=== PATIENT | female | born 1950 | race Caucasian/White ===

== ENCOUNTER 2021-04-09 09:13 | Outpatient (CLI) | payer MEDICARE, SELFPAY ==
--- NOTE | 2021-04-09 09:20 | MM_ITS ---
WS: [id number] BILATERAL SCREENING DIGITAL MAMMOGRAM WITH CAD HISTORY: SCREENING COMPARISON: 08/14/2019 and 11/24/2017 Bilateral CC and MLO views submitted. Computer aided detection analyzed. Breast composition: There are scattered areas of fibroglandular density. No suspicious masses, microc alcifications or architectural distortion. Benign calcifications in each breast. MM/[id number] IMPRESSION: BI-RADS: 2-Benign FOLLOW UP: 1 Year Follow-up
== END 2021-04-09 09:14 | disposition home or self-care (01) ==
PROVIDERS: PCP Nurse Practitioner Family; Visit Provider Nurse Practitioner Family
DX: Z12.31 Encounter for screening mammogram for malignant neoplasm of breast (principal)
CPT/HCPCS: 77067

== ENCOUNTER → 2021-10-20 08:15 | Outpatient (BNVA) | payer MEDICARE, SELFPAY | PROVIDERS: PCP Nurse Practitioner Family; Referring Provider Electrodiagnostic Medicine; Visit Provider Internal Medicine | DX: E20.9 Hypoparathyroidism, unspecified (principal); H91.90 Unspecified hearing loss, unspecified ear | CPT/HCPCS: 80053; 82310; 83970; 99204 ==

== ENCOUNTER 2021-10-21 09:54 | Outpatient (CLI) | payer MEDICARE, SELFPAY ==
[2021-10-21 10:52] LABS: Urine Creatinine 27 mg/dL (28-217)
[2021-10-21 10:54] LABS: Total Volume Urine 2800 ml
[2021-10-21 11:07] LABS: Total Volume Urine 2800 ml
[2021-10-21 11:10] LABS: Calcium 24 Hour Urine 538 mg/24hr (100-300); Urine Calcium Result 19.2 mg/dL
== END 2021-10-21 09:55 | disposition home or self-care (01) ==
LOC: LAB 09:57
PROVIDERS: PCP Nurse Practitioner Family; Visit Provider Internal Medicine
DX: E20.9 Hypoparathyroidism, unspecified (principal); E83.51 Hypocalcemia
CPT/HCPCS: 82340; 82570

== ENCOUNTER 2021-11-08 09:26 | Outpatient (CLI) | payer MEDICARE, SELFPAY ==
[2021-11-08 10:24] LABS: Calcium 8.6 mg/dL (8.5-10.5)
[2021-11-08 10:30] LABS: Parathyroid Hormone 2.4 pg/mL (15-65)
== END 2021-11-08 09:27 | disposition home or self-care (01) ==
LOC: LAB 09:29
PROVIDERS: PCP Nurse Practitioner Family; Visit Provider Internal Medicine
DX: E20.9 Hypoparathyroidism, unspecified (principal)
CPT/HCPCS: 36415; 82310; 83970

== ENCOUNTER 2022-01-14 10:25 | Outpatient (CLI) | payer MEDICARE, SELFPAY ==
[2022-01-14 11:22] LABS: Calcium 8.4 mg/dL (8.5-10.5)
[2022-01-14 11:29] LABS: Parathyroid Hormone 2.6 pg/mL (15-65)
== END 2022-01-14 10:26 | disposition home or self-care (01) ==
PROVIDERS: PCP Nurse Practitioner Family; Visit Provider Internal Medicine
DX: E20.9 Hypoparathyroidism, unspecified (principal)
CPT/HCPCS: 36415; 82310; 83970

== ENCOUNTER → 2022-01-21 08:52 | Outpatient (BNVA) | payer MEDICARE, SELFPAY | PROVIDERS: PCP Nurse Practitioner Family; Visit Provider Internal Medicine | DX: E20.9 Hypoparathyroidism, unspecified (principal) | CPT/HCPCS: 99214 ==

== ENCOUNTER 2022-04-13 14:09 | Outpatient (CLI) | payer MEDICARE, SELFPAY ==
--- NOTE | 2022-04-13 14:18 | MM_ITS ---
WS: [id number] BILATERAL 3D TOMOSYNTHESIS DIGITAL SCREENING MAMMOGRAPHY WITH CAD CLINICAL INFORMATION: SCREENING HISTORY: Screening mammogram. No current complaints. COMPARISON: April 09, 2021 TECHNIQUE: Bilateral CC and MLO views. FINDINGS: Scattered fibroglandular densities bilaterally. No suspicious focal mass, asymmetry, calcifications, or architectural distortion. No evidence of malignancy. Biopsy marker LEFT breast. MM/[place] [id number] IMPRESSION: BI-RADS: 2-Benign FOLLOW UP: 1 Year Follow-up Recommend return to annual screening mammography.
== END 2022-04-13 14:10 | disposition home or self-care (01) ==
PROVIDERS: PCP Nurse Practitioner Family; Visit Provider Electrodiagnostic Medicine
DX: Z12.31 Encounter for screening mammogram for malignant neoplasm of breast (principal)
CPT/HCPCS: 77063; 77067

== ENCOUNTER 2022-07-20 10:59 | Outpatient (CLI) | payer MEDICARE, SELFPAY ==
[2022-07-20 11:53] LABS: Calcium 6.7 mg/dL (8.5-10.5)
[2022-07-20 11:55] LABS: 25 Hydroxy Vitamin D 81 ng/mL (30-100)
[2022-07-20 12:00] LABS: Parathyroid Hormone 2.2 pg/mL (15-65)
== END 2022-07-20 11:00 | disposition home or self-care (01) ==
LOC: LAB 11:02
PROVIDERS: PCP Nurse Practitioner Family; Visit Provider Internal Medicine
DX: E83.51 Hypocalcemia (principal); E20.9 Hypoparathyroidism, unspecified
CPT/HCPCS: 36415; 82306; 82310; 83970

== ENCOUNTER 2022-07-26 09:51 | Outpatient (CLI) | payer MEDICARE, SELFPAY ==
[2022-07-26 10:57] LABS: Alanine Aminotransferase 11 U/L (0-33); Alkaline Phosphatase 97 U/L (35-105); Anion Gap 13.2 (5-19); Aspartate Amino Transferase 20 U/L (0-32); Blood Urea Nitrogen 8 mg/dL (8-23); Calcium 6.7 mg/dL (8.5-10.5); Carbon Dioxide 30 mmol/L (22-29); Chloride 102 mmol/L (98-107); Globulin 2.8 g/dL (1.3-4.6); Glucose 121 mg/dL (65-115); Osmolality Calculated 290 mOsm/kg (285-295); Potassium 5.2 mmol/L (3.5-5.1); Sodium 140 mmol/L (136-145); Total Bilirubin 0.3 mg/dL (0.15-1.2); Total Protein 6.8 g/dL (6.6-8.7)
== END 2022-07-26 09:52 | disposition home or self-care (01) ==
PROVIDERS: PCP Electrodiagnostic Medicine; Visit Provider Internal Medicine
DX: E83.51 Hypocalcemia (principal)
CPT/HCPCS: 36415; 80053

== ENCOUNTER 2022-07-26 13:41 | Emergency (ER) | payer MEDICARE, SELFPAY ==
[2022-07-26 13:49] VITALS: BP 165/96; PULSE 75; RESP 16; TEMP 36.6; O2SAT 95
--- NOTE | 2022-07-26 14:17 | W.ED.RECABL ---
HPI - Recheck/Abnormal Lab/Rx General: Chief Complaint: Recheck/Abnormal Lab/Rx Stated Complaint: Sent by for abnormal labs Time Seen by Provider: 07/26/22 14:11 Source: patient Mode of arrival: ambulatory History of Present Illness: 70-year-old female known history of hypoparathyroidism sent for hypocalcemia. (please note nurses notes this hypercalcemia). Prior to arrival patient calcium 6.7. She has not had any muscle tetany aches or pains. She generally feels fine states she is at low calcium problems for quite some time. She denies any chest pain or discomfort no nausea vomiting diarrhea. She does feel somewhat tired no dizziness or weakness. Context: called for abnormal lab result Associated symptoms: none Review of Systems Const: Reports: fatigue; Denies: fever(s), chills, body aches, change in appetite or malaise ENMT: Denies: throat pain, ear or mastoid pain, nasal discharge or nasal congestion Card: Denies: chest pain, edema, dyspnea on exertion or orthopnea Resp: Denies: dyspnea, productive cough or non-productive cough GI: Denies: abdominal pain, nausea, vomiting, hematemesis, coffee ground emesis, diarrhea, constipation, bloating, hematochezia or melena : Denies: flank pain, difficulty voiding, dysuria, urinary frequency or urinary urgency Skin/Breast: Denies: rash or pruritus PFSH ED PFSH: Medical History Cataract Essential (primary) hypertension Hernia High cholesterol Hypocalcemia Left wrist fracture Surgical History History of cholecystectomy Family History Father Alcoholic Emphysema (subcutaneous) (surgical) resulting from a procedure Mother Cancer Social History Smoking and tobacco status: never smoked Second hand smoke exposure: No Smoking risk assessment/counseling performed?: No Alcohol intake: never Desire information about alcohol rehabilitation?: No Counseling given: No Desire information about substance/drug rehabilitation?: No Counseling given: No Adopted: No Caregiver/support person: No Lives independently: Yes Household members: none Housing: Apartment Marital status: / Number of children: 3 Highest education level completed: 9th Grade service: No Current occupational status: retired History of recent travel: No Physical Exam Const: COMMON NORMALS: no acute distress GENERAL APPEARANCE: cooperative and comfortable ORIENTATION/CONSCIOUSNESS: Yes awake, Yes oriented to person, Yes oriented to place and Yes oriented to time HENMT: COMMON NORMALS: normocephalic, atraumatic and hearing grossly normal bilaterally HEAD & SCALP: normocephalic and atraumatic Resp: COMMON NORMALS: normal respiratory effort, No retractions, No use of accessory muscles and clear to auscultation bilaterally AUSCULTATION: clear to auscultation bilaterally Cardio: COMMON NORMALS: regular rate, regular rhythm and No murmurs present (Cardio) RATE: regular rate RHYTHM: regular rhythm GI: COMMON NORMALS: Soft to palpation and No hepatosplenomegaly present AUSCULTATION: Yes normoactive bowel sounds PALPATION: Yes Soft to palpation, No Tenderness to palpation present (GI), No Guarding due to palpation present (GI) and Yes No hepatosplenomegaly present Extremity: COMMON NORMALS: normal to inspection, capillary refill normal, no clubbing, cyanosis or edema, no calf tenderness and no pedal edema Neuro: SENSORIUM/ORIENTATION: Yes oriented to person, Yes oriented to place and Yes oriented to time Skin: COMMON NORMALS: no rashes or lesions noted GENERAL SKIN EXAM: no rashes or lesions noted Course Vital Signs: Vital signs: Vital Signs Temperature 97.8 F 07/26/22 13:49 Pulse Rate 75 07/26/22 13:49 Respiratory Rate 16 07/26/22 13:49 Blood Pressure 161/85 07/26/22 15:30 Pulse Oximetry 94 07/26/22 16:00 MDM - Recheck/Abnormal Lab/Rx Medical Decision Making Calcium supplementation given repeat labs calcium up to 9.9 we will discharge patient home follow-up with Dr. García as scheduled for repeat calcium checks and management of hypothyroidism. Medical Records I reviewed the patient's medical records. Lab Data I reviewed the patient's lab results. 07/26/22 14:16 07/26/22 15:25 Laboratory Results WBC 4.8 10^3/uL (4.0-10.0) 07/26/22 14:16 RBC 3.54 10^6/uL (4.1-5.3) L 07/26/22 14:16 Hgb 10.1 g/dL (11.5-15.3) L 07/26/22 14:16 Hct 31.9 % (37.0-47.0) L 07/26/22 14:16 MCV 90.1 fl (81-99) 07/26/22 14:16 MCH 28.5 pg (28.0-34.0) 07/26/22 14:16 MCHC 31.7 g/dL (30.0-36.0) 07/26/22 14:16 RDW 16.1 % (12.1-15.1) H 07/26/22 14:16 Plt Count 301 10^3/cmm (130-400) 07/26/22 14:16 MPV 10.4 fL (7.4-10.4) 07/26/22 14:16 Neut % (Auto) 50.2 % 07/26/22 14:16 Lymph % (Auto) 35.2 % 07/26/22 14:16 [place] % (Auto) 8.8 % 07/26/22 14:16 Eos % (Auto) 4.6 % 07/26/22 14:16 Baso % (Auto) 1.0 % 07/26/22 14:16 Neut # (Auto) 2.39 10^3/uL (1.8-7.7) 07/26/22 14:16 Lymph # (Auto) 1.7 10^3/uL (0.8-4.8) 07/26/22 14:16 [place] # (Auto) 0.4 10^3/uL (0.2-0.9) 07/26/22 14:16 Eos # (Auto) 0.2 10^3/uL (0.0-0.8) 07/26/22 14:16 Baso # (Auto) 0.1 10^3/uL (0.0-0.1) 07/26/22 14:16 Nucleated RBC % (auto) 0 % 07/26/22 14:16 Nucleated RBCs # 0.0 /100WBC 07/26/22 14:16 Sodium 135 mmol/L (136-145) L 07/26/22 15:25 Potassium 4.5 mmol/L (3.5-5.1) 07/26/22 15:25 Chloride 97 mmol/L (98-107) L 07/26/22 15:25 Carbon Dioxide 25 mmol/L (22-29) 07/26/22 15:25 Anion Gap 17.5 (5-19) 07/26/22 15:25 BUN 9 mg/dL (8-23) 07/26/22 15:25 Creatinine 0.7 mg/dL (0.5-0.9) 07/26/22 15:25 GFR Calculation Not Reportable 07/26/22 15:25 Glucose 111 mg/dL (65-115) 07/26/22 15:25 Calculated Osmolality 279 mOsm/kg (285-295) L 07/26/22 15:25 Calcium 9.9 mg/dL (8.5-10.5) 07/26/22 15:25 PTH Intact 3.0 pg/mL (15-65) L 07/26/22 14:16 Calcium (PTH Intact) 10.4 mg/dL (8.5-10.5) 07/26/22 14:16 Discharge Plan Discharge Patient Disposition: Home Clinical Impression: Hypocalcemia, Hypoparathyroidism Condition: Stable Prescriptions: No Action calcitriol 1 mcg/mL solution 1 mcg PO DAILY Calcium Chew 500-100-40 mg-unit-mcg Tablet,Chewable 1 tab PO BID calcium carbonate 500 mg/5 mL (1,250 mg/5 mL) suspension 500 mg PO QAM Discharge Orders: Discharge ED (Routine); Ordered 07/26/22 Ordered By: Armond Villegas Referrals: Enmanuel Patrick DO [Primary Care Provider] - Discharge Diet: Usual diet Discharge Activity: Resume usual activity Patient Instructions: Opioid Safety, Pain Management Activity Restrictions/Additional Instructions: You were seen today for hypocalcemia. Your calcium improved after you were given supplementation. You should follow-up with Dr. García to address the hypoparathyroidism which caused your low calcium. Coding Level of Care Code ED Inspector Subassembly for Zelda Ch
[2022-07-26 14:21] VITALS: BP 142/102; O2SAT 98
[2022-07-26 14:23] LABS: Basophils # 0.1 10^3/uL (0.0-0.1); Eosinophils # 0.2 10^3/uL (0.0-0.8); Eosinophils % 4.6 %; Hematocrit 31.9 % (37.0-47.0); Hemoglobin 10.1 g/dL (11.5-15.3); Lymphocytes # 1.7 10^3/uL (0.8-4.8); Lymphocytes % 35.2 %; Mean Corpuscular HGB Conc 31.7 g/dL (30.0-36.0); Mean Corpuscular Hemoglobin 28.5 pg (28.0-34.0); Mean Corpuscular Volume 90.1 fl (81-99); Mean Platelet Volume 10.4 fL (7.4-10.4); Monocytes # 0.4 10^3/uL (0.2-0.9); Monocytes % 8.8 %; Neutrophils # 2.39 10^3/uL (1.8-7.7); Neutrophils % 50.2 %; Nucleated Red Blood Cells % 0 %; Platelet Count 301 10^3/cmm (130-400); Red Blood Count 3.54 10^6/uL (4.1-5.3); Red Cell Distribution Width 16.1 % (12.1-15.1); White Blood Count 4.8 10^3/uL (4.0-10.0)
[2022-07-26 14:30] VITALS: BP 142/102; O2SAT 97
[2022-07-26] MEDS: calcium chloride 10% Syr 10 mL 2 GM IVP (14:44)
[2022-07-26 14:46] LABS: Blood Urea Nitrogen 9 mg/dL (8-23); Calcium 6.1 mg/dL (8.5-10.5); Carbon Dioxide 25 mmol/L (22-29); Chloride 97 mmol/L (98-107); Glucose 106 mg/dL (65-115); Osmolality Calculated 279 mOsm/kg (285-295); Sodium 135 mmol/L (136-145)
[2022-07-26 14:48] LABS: Anion Gap 16.9 (5-19); Potassium 3.9 mmol/L (3.5-5.1)
[2022-07-26 15:00] VITALS: BP 149/87; O2SAT 94
[2022-07-26 15:30] VITALS: BP 161/85; O2SAT 92
--- NOTE | 2022-07-26 15:30 | PC.PHAR ---
pt states she takes care of her own medications-pt states she never started the lipitor 20mg daily filled on 03/15/22 90d/s pt states she cant swallow pills-rx filled 07/08/22 calcitriol 1mcg/ml [facility] states this medication is unavailable-pt states not had in a month-notes are made in the pharmacy comments
[2022-07-26 15:56] LABS: Calcium 10.4 mg/dL (8.5-10.5)
[2022-07-26 16:00] VITALS: O2SAT 94
[2022-07-26 16:48] LABS: Anion Gap 17.5 (5-19); Blood Urea Nitrogen 9 mg/dL (8-23); Calcium 9.9 mg/dL (8.5-10.5); Carbon Dioxide 25 mmol/L (22-29); Chloride 97 mmol/L (98-107); Glucose 111 mg/dL (65-115); Osmolality Calculated 279 mOsm/kg (285-295); Potassium 4.5 mmol/L (3.5-5.1); Sodium 135 mmol/L (136-145)
== END 2022-07-26 17:09 | disposition home or self-care (01) ==
PROVIDERS: Emergency Medicine; Emergency Provider Family Medicine; PCP Electrodiagnostic Medicine
DX: E83.51 Hypocalcemia (principal); E20.9 Hypoparathyroidism, unspecified; I10 Essential (primary) hypertension
CPT/HCPCS: 36415; 80048; 80053; 82310; 83970; 85025; 96374; 99284; J3490

== ENCOUNTER 2022-08-10 10:04 | Outpatient (CLI) | payer MEDICARE, SELFPAY ==
[2022-08-10 10:28] LABS: Ionized Calcium 0.8 mmol/L (1.1-1.4)
[2022-08-10 11:14] LABS: Alanine Aminotransferase 9 U/L (0-33); Albumin Level 3.9 g/dL (3.5-5.2); Alkaline Phosphatase 105 U/L (35-105); Anion Gap 14.2 (5-19); Aspartate Amino Transferase 24 U/L (0-32); Blood Urea Nitrogen 8 mg/dL (8-23); Calcium 6.4 mg/dL (8.5-10.5); Carbon Dioxide 29 mmol/L (22-29); Chloride 102 mmol/L (98-107); Globulin 2.8 g/dL (1.3-4.6); Glucose 107 mg/dL (65-115); Osmolality Calculated 291 mOsm/kg (285-295); Potassium 4.2 mmol/L (3.5-5.1); Sodium 141 mmol/L (136-145); Total Bilirubin 0.2 mg/dL (0.15-1.2); Total Protein 6.7 g/dL (6.6-8.7)
== END 2022-08-10 10:05 | disposition home or self-care (01) ==
LOC: RAD 10:06
PROVIDERS: PCP Electrodiagnostic Medicine; Visit Provider Internal Medicine
DX: E20.9 Hypoparathyroidism, unspecified (principal); E55.9 Vitamin D deficiency, unspecified; E83.51 Hypocalcemia
CPT/HCPCS: 80053; 82330

== ENCOUNTER → 2022-08-11 10:57 | Outpatient (BNVA) | payer MEDICARE, SELFPAY | PROVIDERS: PCP Electrodiagnostic Medicine; Visit Provider Internal Medicine | DX: E83.51 Hypocalcemia (principal) | CPT/HCPCS: 99214 ==

== ENCOUNTER 2022-08-19 10:00 | Outpatient (CLI) | payer MEDICARE, SELFPAY ==
[2022-08-19 11:04] LABS: Anion Gap 18.5 (5-19); Blood Urea Nitrogen 9 mg/dL (8-23); Calcium 6.6 mg/dL (8.5-10.5); Carbon Dioxide 25 mmol/L (22-29); Chloride 100 mmol/L (98-107); Glucose 106 mg/dL (65-115); Osmolality Calculated 287 mOsm/kg (285-295); Potassium 4.5 mmol/L (3.5-5.1); Sodium 139 mmol/L (136-145)
== END 2022-08-19 10:01 | disposition home or self-care (01) ==
PROVIDERS: PCP Electrodiagnostic Medicine; Visit Provider Internal Medicine
DX: E55.9 Vitamin D deficiency, unspecified (principal)
CPT/HCPCS: 36415; 80048

== ENCOUNTER 2022-08-26 10:00 | Outpatient (CLI) | payer MEDICARE, SELFPAY ==
[2022-08-26 11:10] LABS: Anion Gap 16.3 (5-19); Blood Urea Nitrogen 13 mg/dL (8-23); Calcium 8.3 mg/dL (8.5-10.5); Carbon Dioxide 25 mmol/L (22-29); Chloride 100 mmol/L (98-107); Glucose 106 mg/dL (65-115); Osmolality Calculated 285 mOsm/kg (285-295); Potassium 4.3 mmol/L (3.5-5.1); Sodium 137 mmol/L (136-145)
== END 2022-08-26 10:01 | disposition home or self-care (01) ==
PROVIDERS: PCP Electrodiagnostic Medicine; Visit Provider Internal Medicine
DX: E83.51 Hypocalcemia (principal)
CPT/HCPCS: 80048

== ENCOUNTER 2022-10-18 08:47 | Outpatient (CLI) | payer MEDICARE, SELFPAY ==
[2022-10-18 10:44] LABS: Alanine Aminotransferase 15 U/L (0-33); Albumin Level 4.1 g/dL (3.5-5.2); Alkaline Phosphatase 82 U/L (35-105); Aspartate Amino Transferase 23 U/L (0-32); Blood Urea Nitrogen 11 mg/dL (8-23); Calcium 7.9 mg/dL (8.5-10.5); Carbon Dioxide 24 mmol/L (22-29); Chloride 99 mmol/L (98-107); Globulin 3.2 g/dL (1.3-4.6); Glucose 102 mg/dL (65-115); Osmolality Calculated 280 mOsm/kg (285-295); Sodium 135 mmol/L (136-145); Total Bilirubin 0.3 mg/dL (0.15-1.2); Total Protein 7.3 g/dL (6.6-8.7)
[2022-10-18 10:46] LABS: Anion Gap 16.3 (5-19); Potassium 4.3 mmol/L (3.5-5.1)
== END 2022-10-18 08:48 | disposition home or self-care (01) ==
LOC: LAB 08:57
PROVIDERS: PCP Electrodiagnostic Medicine; Visit Provider Internal Medicine
DX: E55.9 Vitamin D deficiency, unspecified (principal); E83.51 Hypocalcemia; E20.9 Hypoparathyroidism, unspecified
CPT/HCPCS: 36415; 80053; 99214

== ENCOUNTER 2022-11-02 07:44 | Outpatient (CLI) | payer MEDICARE, SELFPAY ==
[2022-11-02 08:42] LABS: Alanine Aminotransferase 12 U/L (0-33); Alkaline Phosphatase 78 U/L (35-105); Anion Gap 15.2 (5-19); Aspartate Amino Transferase 20 U/L (0-32); Blood Urea Nitrogen 13 mg/dL (8-23); Calcium 9.1 mg/dL (8.5-10.5); Carbon Dioxide 28 mmol/L (22-29); Chloride 100 mmol/L (98-107); Globulin 2.7 g/dL (1.3-4.6); Glucose 105 mg/dL (65-115); Osmolality Calculated 288 mOsm/kg (285-295); Potassium 4.2 mmol/L (3.5-5.1); Sodium 139 mmol/L (136-145); Total Bilirubin 0.5 mg/dL (0.15-1.2); Total Protein 6.7 g/dL (6.6-8.7)
== END 2022-11-02 07:45 | disposition home or self-care (01) ==
LOC: LAB 07:49
PROVIDERS: PCP Electrodiagnostic Medicine; Visit Provider Internal Medicine
DX: E20.9 Hypoparathyroidism, unspecified (principal); E55.9 Vitamin D deficiency, unspecified; E83.51 Hypocalcemia
CPT/HCPCS: 80053

== ENCOUNTER 2022-11-17 07:15 | Outpatient (CLI) | payer MEDICARE, SELFPAY ==
[2022-11-17 08:05] LABS: Alanine Aminotransferase 11 U/L (0-33); Alkaline Phosphatase 74 U/L (35-105); Anion Gap 14.2 (5-19); Aspartate Amino Transferase 21 U/L (0-32); Blood Urea Nitrogen 7 mg/dL (8-23); Calcium 8.6 mg/dL (8.5-10.5); Carbon Dioxide 27 mmol/L (22-29); Chloride 100 mmol/L (98-107); Globulin 2.7 g/dL (1.3-4.6); Glucose 107 mg/dL (65-115); Osmolality Calculated 282 mOsm/kg (285-295); Potassium 4.2 mmol/L (3.5-5.1); Sodium 137 mmol/L (136-145); Total Bilirubin 0.3 mg/dL (0.15-1.2); Total Protein 6.7 g/dL (6.6-8.7)
== END 2022-11-17 07:16 | disposition home or self-care (01) ==
PROVIDERS: PCP Electrodiagnostic Medicine; Visit Provider Internal Medicine
DX: E20.9 Hypoparathyroidism, unspecified (principal); E55.9 Vitamin D deficiency, unspecified; E83.51 Hypocalcemia
CPT/HCPCS: 36415; 80053

== ENCOUNTER 2022-12-13 07:38 | Outpatient (CLI) | payer MEDICARE, SELFPAY ==
[2022-12-13 08:54] LABS: Alanine Aminotransferase 10 U/L (0-33); Albumin Level 3.9 g/dL (3.5-5.2); Alkaline Phosphatase 72 U/L (35-105); Anion Gap 14.7 (5-19); Aspartate Amino Transferase 18 U/L (0-32); Blood Urea Nitrogen 8 mg/dL (8-23); Calcium 8.2 mg/dL (8.5-10.5); Carbon Dioxide 28 mmol/L (22-29); Chloride 101 mmol/L (98-107); Globulin 2.4 g/dL (1.3-4.6); Glucose 87 mg/dL (65-115); Osmolality Calculated 286 mOsm/kg (285-295); Potassium 4.7 mmol/L (3.5-5.1); Sodium 139 mmol/L (136-145); Total Bilirubin 0.3 mg/dL (0.15-1.2); Total Protein 6.3 g/dL (6.6-8.7)
== END 2022-12-13 07:39 | disposition home or self-care (01) ==
LOC: LAB 07:45
PROVIDERS: PCP Electrodiagnostic Medicine; Visit Provider Internal Medicine
DX: E20.9 Hypoparathyroidism, unspecified (principal); E55.9 Vitamin D deficiency, unspecified
CPT/HCPCS: 36415; 80053

== ENCOUNTER → 2022-12-20 13:11 | Outpatient (BNVA) | payer MEDICARE, SELFPAY | PROVIDERS: PCP Electrodiagnostic Medicine; Visit Provider Internal Medicine | DX: E20.9 Hypoparathyroidism, unspecified (principal); E55.9 Vitamin D deficiency, unspecified | CPT/HCPCS: 99214 ==

== ENCOUNTER 2023-02-20 07:02 | Outpatient (CLI) | payer MEDICARE, MEDICAID, SELFPAY ==
[2023-02-20 07:36] LABS: Alanine Aminotransferase 11 U/L (0-33); Albumin Level 3.9 g/dL (3.5-5.2); Alkaline Phosphatase 73 U/L (35-105); Aspartate Amino Transferase 17 U/L (0-32); Blood Urea Nitrogen 6 mg/dL (8-23); Calcium 8.1 mg/dL (8.5-10.5); Carbon Dioxide 26 mmol/L (22-29); Chloride 100 mmol/L (98-107); Globulin 2.6 g/dL (1.3-4.6); Glucose 103 mg/dL (65-115); Osmolality Calculated 282 mOsm/kg (285-295); Sodium 137 mmol/L (136-145); Total Bilirubin 0.4 mg/dL (0.15-1.2); Total Protein 6.5 g/dL (6.6-8.7)
[2023-02-20 07:51] LABS: 25 Hydroxy Vitamin D 63 ng/mL (30-100)
== END 2023-02-20 07:03 | disposition home or self-care (01) ==
PROVIDERS: PCP Electrodiagnostic Medicine; Visit Provider Internal Medicine
DX: E20.9 Hypoparathyroidism, unspecified (principal); E55.9 Vitamin D deficiency, unspecified
CPT/HCPCS: 36415; 80053; 82306

== ENCOUNTER 2023-04-18 15:11 | Outpatient (CLI) | payer MEDICARE, MEDICAID, SELFPAY ==
--- NOTE | 2023-04-18 15:24 | MM_ITS ---
WS: [id number] BILATERAL 3D TOMOSYNTHESIS DIGITAL SCREENING MAMMOGRAPHY WITH CAD CLINICAL INFORMATION: SCREENING HISTORY: Screening mammogram. No current complaints. COMPARISON: 2021 TECHNIQUE: Bilateral CC and MLO views. FINDINGS: Scattered fibroglandular densities bilaterally. No suspicious focal mass, asymmetry, calcifications, or architectural distortion. No evidence of malignancy. Incidental punctate calcification LEFT breast . Biopsy marker LEFT breast. IMPRESSION: MM/[place] [id number] BI-RADS: 2-Benign FOLLOW UP: 1 Year Follow-up Recommend return to annual screening mammography.
== END 2023-04-18 15:12 | disposition home or self-care (01) ==
PROVIDERS: PCP Electrodiagnostic Medicine; Visit Provider Electrodiagnostic Medicine
DX: Z12.31 Encounter for screening mammogram for malignant neoplasm of breast (principal)
CPT/HCPCS: 77063; 77067

== ENCOUNTER 2023-04-28 09:54 | Outpatient (CLI) | payer MEDICARE, MEDICAID, SELFPAY ==
[2023-04-28 10:37] LABS: Alanine Aminotransferase 9 U/L (0-33); Albumin Level 4.2 g/dL (3.5-5.2); Alkaline Phosphatase 75 U/L (35-105); Anion Gap 12.9 (5-19); Aspartate Amino Transferase 17 U/L (0-32); Blood Urea Nitrogen 14 mg/dL (8-23); Calcium 9.8 mg/dL (8.5-10.5); Carbon Dioxide 30 mmol/L (22-29); Chloride 102 mmol/L (98-107); Globulin 2.4 g/dL (1.3-4.6); Glucose 115 mg/dL (65-115); Osmolality Calculated 293 mOsm/kg (285-295); Potassium 3.9 mmol/L (3.5-5.1); Sodium 141 mmol/L (136-145); Total Bilirubin 0.4 mg/dL (0.15-1.2); Total Protein 6.6 g/dL (6.6-8.7)
== END 2023-04-28 09:55 | disposition home or self-care (01) ==
PROVIDERS: PCP Electrodiagnostic Medicine; Visit Provider Internal Medicine
DX: E20.9 Hypoparathyroidism, unspecified (principal); E55.9 Vitamin D deficiency, unspecified
CPT/HCPCS: 36415; 80053

== ENCOUNTER → 2023-05-05 10:46 | Outpatient (BNVA) | payer MEDICARE, MEDICAID, SELFPAY | PROVIDERS: PCP Electrodiagnostic Medicine; Visit Provider Internal Medicine | DX: E20.9 Hypoparathyroidism, unspecified (principal); E55.9 Vitamin D deficiency, unspecified | CPT/HCPCS: 99214 ==

== ENCOUNTER 2023-10-30 07:31 | Outpatient (CLI) | payer MEDICARE, MEDICAID, SELFPAY ==
[2023-10-30 08:08] LABS: Alanine Aminotransferase 18 U/L (0-33); Albumin Level 4.2 g/dL (3.5-5.2); Alkaline Phosphatase 90 U/L (35-105); Anion Gap 17.1 (5-19); Aspartate Amino Transferase 20 U/L (0-32); Blood Urea Nitrogen 7 mg/dL (8-23); Calcium 8.3 mg/dL (8.5-10.5); Carbon Dioxide 25 mmol/L (22-29); Chloride 104 mmol/L (98-107); Globulin 2.5 g/dL (1.3-4.6); Glucose 135 mg/dL (65-115); Osmolality Calculated 294 mOsm/kg (285-295); Potassium 4.1 mmol/L (3.5-5.1); Sodium 142 mmol/L (136-145); Total Bilirubin 0.4 mg/dL (0.15-1.2); Total Protein 6.7 g/dL (6.6-8.7)
[2023-10-30 08:21] LABS: 25 Hydroxy Vitamin D 59 ng/mL (30-100)
== END 2023-10-30 07:32 | disposition home or self-care (01) ==
LOC: LAB 07:33
PROVIDERS: PCP Electrodiagnostic Medicine; Visit Provider Internal Medicine
DX: E55.9 Vitamin D deficiency, unspecified (principal); E20.9 Hypoparathyroidism, unspecified
CPT/HCPCS: 36415; 80053; 82306

== ENCOUNTER → 2023-11-01 11:04 | Outpatient (BNVA) | payer MEDICARE, SELFPAY | PROVIDERS: PCP Electrodiagnostic Medicine; Visit Provider Internal Medicine | DX: E20.9 Hypoparathyroidism, unspecified (principal); E55.9 Vitamin D deficiency, unspecified | CPT/HCPCS: 99214 ==

== ENCOUNTER → 2023-12-28 07:52 | Outpatient (BNVA) | payer MEDICARE, SELFPAY | PROVIDERS: PCP Electrodiagnostic Medicine; Visit Provider Nurse Practitioner Family | DX: L72.0 Epidermal cyst (principal); L57.0 Actinic keratosis; L82.0 Inflamed seborrheic keratosis; L73.8 Other specified follicular disorders; D18.01 Hemangioma of skin and subcutaneous tissue | CPT/HCPCS: 10060; 17000; 17110; 99203 ==

== ENCOUNTER 2024-04-19 10:24 | Outpatient (CLI) | payer MEDICARE, SELFPAY ==
--- NOTE | 2024-04-19 10:28 | MM_ITS ---
WS: [id number] Bilateral screening 3D tomosynthesis digital mammogram, 04/19/2024 10:35 AM Clinical Data: SCREENING Comparison: 04/18/2023, 04/13/2022, 04/09/2021, 08/14/2019, 11/24/2017, 06/09/2017, 10/25/2016, 10/13/2016, 10/08/2015, 07/30/2014, 07/29/2013, 06/13/2012, 05/16/2011, 03/31/2010, 01/01/2009, 10/05/2006. Findings: No spiculated masses or clustered calcifications are seen. There are no secondary signs of carcinoma . There is a biopsy clip in the lateral aspect of the left breast. MM/MM scr BI tomosynthesis [id number] Impression: Negative bilateral mammogram unchanged. Recommend annual screening mammograms. BIRADS: 1 - Negative. FOLLOW UP: 1 Year Follow-up DENSITY: The breasts are almost entirely fatty. The CAD loom stop checker was used
== END 2024-04-19 10:25 | disposition home or self-care (01) ==
LOC: RAD 10:24
PROVIDERS: PCP Electrodiagnostic Medicine; Visit Provider Electrodiagnostic Medicine
DX: Z12.31 Encounter for screening mammogram for malignant neoplasm of breast (principal)
CPT/HCPCS: 77063; 77067

== ENCOUNTER 2024-06-03 11:29 | Outpatient (CLI) | payer MEDICARE, SELFPAY ==
[2024-06-03 12:48] LABS: Alanine Aminotransferase 17 U/L (0-33); Albumin Level 4.2 g/dL (3.5-5.2); Alkaline Phosphatase 96 U/L (35-105); Anion Gap 9.7 (5-19); Aspartate Amino Transferase 20 U/L (0-32); Blood Urea Nitrogen 12 mg/dL (8-23); Calcium 9.5 mg/dL (8.5-10.5); Carbon Dioxide 33 mmol/L (22-29); Chloride 102 mmol/L (98-107); Globulin 2.7 g/dL (1.3-4.6); Glucose 155 mg/dL (65-115); Osmolality Calculated 295 mOsm/kg (285-295); Potassium 3.7 mmol/L (3.5-5.1); Sodium 141 mmol/L (136-145); Total Bilirubin 0.4 mg/dL (0.15-1.2); Total Protein 6.9 g/dL (6.6-8.7)
[2024-06-03 13:02] LABS: 25 Hydroxy Vitamin D 54 ng/mL (30-100)
== END 2024-06-03 11:30 | disposition home or self-care (01) ==
LOC: LAB 11:30
PROVIDERS: PCP Electrodiagnostic Medicine; Visit Provider Internal Medicine
DX: E55.9 Vitamin D deficiency, unspecified (principal); E20.9 Hypoparathyroidism, unspecified
CPT/HCPCS: 36415; 80053; 82306

== ENCOUNTER → 2024-07-24 09:03 | Outpatient (BNVA) | payer MEDICARE, SELFPAY | PROVIDERS: PCP Electrodiagnostic Medicine; Visit Provider Internal Medicine | DX: E20.9 Hypoparathyroidism, unspecified (principal) | CPT/HCPCS: 99214 ==

== ENCOUNTER 2024-07-25 07:47 | Outpatient (CLI) | payer MEDICARE, SELFPAY ==
[2024-07-25 08:28] LABS: Alanine Aminotransferase 17 U/L (0-33); Albumin Level 4.1 g/dL (3.5-5.2); Alkaline Phosphatase 87 U/L (35-105); Anion Gap 17.2 (5-19); Aspartate Amino Transferase 23 U/L (0-32); Blood Urea Nitrogen 8 mg/dL (8-23); Calcium 8.5 mg/dL (8.5-10.5); Carbon Dioxide 25 mmol/L (22-29); Chloride 100 mmol/L (98-107); Globulin 2.3 g/dL (1.3-4.6); Glucose 148 mg/dL (65-115); Osmolality Calculated 287 mOsm/kg (285-295); Potassium 4.2 mmol/L (3.5-5.1); Sodium 138 mmol/L (136-145); Total Bilirubin 0.5 mg/dL (0.15-1.2); Total Protein 6.4 g/dL (6.6-8.7)
== END 2024-07-25 07:48 | disposition home or self-care (01) ==
LOC: LAB 07:49
PROVIDERS: PCP Electrodiagnostic Medicine; Visit Provider Internal Medicine
DX: E83.51 Hypocalcemia (principal)
CPT/HCPCS: 36415; 80053

== ENCOUNTER 2025-02-06 08:41 | Outpatient (CLI) | payer MEDICARE, SELFPAY ==
[2025-02-06 09:38] LABS: Alanine Aminotransferase 22 U/L (0-33); Albumin Level 4.3 g/dL (3.5-5.2); Alkaline Phosphatase 92 U/L (35-105); Anion Gap 15.9 (5-19); Aspartate Amino Transferase 26 U/L (0-32); Blood Urea Nitrogen 17 mg/dL (8-23); Calcium 8.8 mg/dL (8.5-10.5); Carbon Dioxide 28 mmol/L (22-29); Chloride 103 mmol/L (98-107); Globulin 3.2 g/dL (1.3-4.6); Glucose 132 mg/dL (65-115); Osmolality Calculated 299 mOsm/kg (285-295); Potassium 3.9 mmol/L (3.5-5.1); Sodium 143 mmol/L (136-145); Total Protein 7.5 g/dL (6.6-8.7)
== END 2025-02-06 08:42 | disposition home or self-care (01) ==
PROVIDERS: PCP Electrodiagnostic Medicine; Visit Provider Internal Medicine
DX: E83.51 Hypocalcemia (principal); E20.9 Hypoparathyroidism, unspecified; E55.9 Vitamin D deficiency, unspecified
CPT/HCPCS: 36415; 80053; 82306

== ENCOUNTER → 2025-02-13 08:35 | Outpatient (BNVA) | payer MEDICARE, SELFPAY | PROVIDERS: PCP Electrodiagnostic Medicine; Visit Provider Internal Medicine | DX: E20.9 Hypoparathyroidism, unspecified (principal); E55.9 Vitamin D deficiency, unspecified | CPT/HCPCS: 99214 ==

== ENCOUNTER → 2025-02-26 09:48 | Outpatient (BNVA) | payer MEDICARE, SELFPAY | PROVIDERS: PCP Electrodiagnostic Medicine; Visit Provider Nurse Practitioner Family | DX: L57.8 Other skin changes due to chronic exposure to nonionizing radiation (principal); L72.0 Epidermal cyst; D48.5 Neoplasm of uncertain behavior of skin; L57.0 Actinic keratosis | CPT/HCPCS: 10060; 11102; 17000; 99213 ==

== ENCOUNTER 2025-04-22 13:55 | Outpatient (CLI) | payer MEDICARE, SELFPAY ==
--- NOTE | 2025-04-22 14:02 | MM_ITS ---
WS: [id number] BILATERAL 3D TOMOSYNTHESIS DIGITAL SCREENING MAMMOGRAPHY WITH CAD CLINICAL INFORMATION: SCREENING HISTORY: Screening mammogram. No current complaints. COMPARISON: 2023 TECHNIQUE: Bilateral CC and MLO views. FINDINGS: Scattered fibroglandular densities bilaterally. No suspicious focal mass, asymmetry, calcifications, or architectural distortion. No evidence of malignancy. Stable biopsy clip LEFT breast. MM/MM scr [place] tomosynthesis [id number] IMPRESSION: DENSITY: There are scattered areas of fibroglandular density. BI-RADS: 2 - Benign. FOLLOW UP: 1 Year Follow-up Recommend return to annual screening mammography.
== END 2025-04-22 13:56 | disposition home or self-care (01) ==
LOC: RAD 13:58
PROVIDERS: PCP Electrodiagnostic Medicine; Visit Provider Electrodiagnostic Medicine
DX: Z12.31 Encounter for screening mammogram for malignant neoplasm of breast (principal); R92.323 Mammographic fibroglandular density, bilateral breasts; Z96.89 Presence of other specified functional implants
CPT/HCPCS: 77063; 77067